=== PATIENT | female | born 1985 | race Caucasian/White ===

== ENCOUNTER 2018-11-18 05:34 | Day surgery (SDC) | payer MEDICAID ==
--- NOTE | 2018-11-12 12:48 | RADIOLOGY REPORT (SQ) ---
EXAM DESCRIPTION: CHEST PA/LATERAL COMPLETED DATE/TIME: 11/12/2018 12:39 pm REASON FOR STUDY: PRE-OP COMPARISON: None. EXAM PARAMETERS: NUMBER OF VIEWS: two views TECHNIQUE: Digital Frontal and Lateral radiographic views of the chest acquired. RADIATION DOSE: NA LIMITATIONS: none FINDINGS: LUNGS AND PLEURA: No opacities, masses or pneumothorax. No pleural effusion. MEDIASTINUM AND HILAR STRUCTURES: No masses or contour abnormalities. HEART AND VASCULAR STRUCTURES: Heart normal size. No evidence for failure. BONES: No acute findings. HARDWARE: None in the chest. OTHER: No other significant finding. IMPRESSION: NO SIGNIFICANT RADIOGRAPHIC FINDING IN THE CHEST. TECHNICAL DOCUMENTATION: JOB ID: [id number] [employer]- All Rights Reserved Reading location - IP/workstation name: [email or web address]
[2018-11-12 13:36] LABS: HEMATOCRIT 35.5 % (36.0-47.0); HEMOGLOBIN 11.9 g/dL (12.0-15.5); MEAN CORPUSCULAR HEMOGLOBIN 28.5 pg (27.0-33.4); MEAN CORPUSCULAR HGB CONC 33.6 g/dL (32.0-36.0); MEAN CORPUSCULAR VOLUME 85 fl (80-97); PLATELET COUNT 197 10^3/uL (150-450); RED BLOOD COUNT 4.19 10^6/uL (3.72-5.28); RED CELL DISTRIBUTION WIDTH 13.4 % (11.5-14.0); WHITE BLOOD COUNT 3.5 10^3/uL (4.0-10.5)
[2018-11-12 13:42] LABS: APPEARANCE,URINE SLIGHTLY-CLOUDY; BILIRUBIN,URINE NEGATIVE (NEGATIVE); COLOR,URINE YELLOW; GLUCOSE, URINE NEGATIVE (NEGATIVE); KETONES,URINE NEGATIVE (NEGATIVE); LEUKOCYTE ESTERASE,URINE NEGATIVE (NEGATIVE); NITRITE,URINE NEGATIVE (NEGATIVE); PROTEIN,URINE NEGATIVE (NEGATIVE); URINE SPECIFIC GRAVITY 1.021; UROBILINOGEN,URINE NEGATIVE mg/dL (<2.0)
[~2018-11-18 05:34] MED LIST: LACTATED RINGERS 1000 ML IV PRN; LIDOCAINE 0.5% INJ-PF (5 MG/ML) 50 ML SDV SUBCUT PRN
[2018-11-18] MEDS ORDERED: ALBUTEROL SULFATE 0.083% NEB 2.5 MG/3 ML AMPUL NEB ONE (06:08)
[2018-11-18] MEDS ORDERED: LIDOCAINE 2% INJ-PF (20 MG/ML) 10 ML AMPUL ONE (06:38)
[2018-11-18] MEDS ORDERED: FENTANYL CITRATE INJ/PF 100 MCG/2 ML AMPUL ONE (06:38)
[2018-11-18] MEDS ORDERED: EPHEDRINE SULFATE INJ 50 MG/1 ML AMPULE ONE (06:39)
[2018-11-18] MEDS ORDERED: PROMETHAZINE HCL INJ 25 MG/1 ML VIAL ONE (06:39)
[2018-11-18] MEDS ORDERED: PROPOFOL INJ 200 MG/20 ML VIAL IV ONE (06:39)
[2018-11-18] MEDS ORDERED: DEXAMETHASONE SOD PHOSPHATE INJ 4 MG/1 ML VIAL ONE (06:39)
[2018-11-18] MEDS ORDERED: ONDANSETRON HCL INJ/PF 4 MG/2 ML SDV ONE (06:39)
[2018-11-18] MEDS ORDERED: MIDAZOLAM 2 MG/2 ML INJ ONE (06:39)
[2018-11-18] MEDS ORDERED: ACETAMINOPHEN 1,000 MG/100 ML RTUPB IV ONE (06:39)
[2018-11-18] MEDS ORDERED: LIDOCAINE 1%/EPINEPHRINE INJ 20 ML VIAL ONE (06:45)
[2018-11-18] MEDS ORDERED: MORPHINE SULFATE 10 MG/ML INJ IV PRN (06:51)
[2018-11-18] MEDS ORDERED: DIPHENHYDRAMINE HCL 50 MG/ML VIAL IV PRN (06:51)
[2018-11-18] MEDS ORDERED: OXYCODONE-ACETAMINOPHEN 5-325 MG TABLET PO PRN ×4 (06:51→09:46)
[2018-11-18] MEDS ORDERED: FENTANYL CITRATE INJ/PF 100 MCG/2 ML AMPUL IV PRN ×3 (06:51)
[2018-11-18] MEDS ORDERED: PROMETHAZINE HCL INJ 25 MG/1 ML VIAL IV PRN ×2 (06:51)
[2018-11-18] MEDS ORDERED: MEPERIDINE HCL/PF INJ 25 MG/1 ML DISP.SYRIN IV PRN (06:51)
[2018-11-18] MEDS ORDERED: SCOPOLAMINE HYDROBROMIDE 1.5 MG PATCH.TD72 ONE (07:30)
[2018-11-18] MEDS ORDERED: HYDROMORPHONE HCL INJ/PF 2 MG/ML AMPULE ONE (07:58)
[2018-11-18] MEDS ORDERED: MEPERIDINE HCL/PF INJ 25 MG/1 ML DISP.SYRIN ONE (09:07)
[2018-11-18] MEDS ORDERED: MORPHINE SULFATE 10 MG/ML INJ IM PRN (09:44)
[2018-11-18] MEDS ORDERED: IBUPROFEN 800 MG TABLET PO PRN (09:45)
--- NOTE | 2018-11-18 10:07 | OPERATIVE REPORT E ---
Operative Report NAME: JON CRUZ : 1985 AGE: 33Y DATE OF SURGERY: 11/18/2018 ROOM: PREOPERATIVE DIAGNOSES: 1. Undesired fertility. 2. Cervical intraepithelial neoplasia grade 3. OPERATION: Laparoscopic tubal cauterization with cold knife cone biopsy and excision of inclusion cyst. SURGEON: MONISHA TITUS M.D. ESTIMATED BLOOD LOSS: 20 mL. FINDINGS: Normal uterus, tubes, and ovaries. Normal-appearing cervix with no visible lesions. COMPLICATIONS: None. SPECIMENS: Removed with the cold knife cone biopsy. PROCEDURE IN DETAIL: The patient was taken to the operating room, prepared and draped in a normal sterile fashion in the dorsal lithotomy position. Under sterile conditions an in-and-out catheter was performed of approximately 30 mL of clear urine. A sterile speculum was then placed in the vagina and the cervix was prepped with Betadine and grasped on the anterior lip with a single-tooth tenaculum. The cervix was then injected with approximately 10 mL of lidocaine 2% with epinephrine in a circumferential fashion. The 2 stay sutures of 0 Vicryl were placed at the 9 o'clock and 3 o'clock positions. The cold knife cone was then performed using an 11 blade and angling inwards towards the cervical canal. The cone was then amputated at the deepest aspect using Mayos. I did not get as much of the cervical canal as I would have liked so I did repeat another small part of excision using the 11 blade and removed this again with pickups and passed this off the field as well. The defect was then well cauterized with ball cautery using the Bovie. The defect was then packed with Surgifoam soaked in Monsel's and was tied in with the stay sutures. The stay sutures were then trimmed. Attention was then turned to the inclusion cyst that the patient asked for removal of. The inclusion cyst was on the left introitus and this was injected with another 3 mL of lidocaine with epinephrine and undermined. The inclusion cyst was then removed using an 11 blade scalpel and the skin was reapproximated using 3-0 Vicryl in a running fashion. This suture was then trimmed. The speculum was removed from the vagina and the sponge stick was placed into the vagina for uterine manipulation for her tubal. Gloves were changed and attention was turned to the upper portion of the case where an umbilical skin incision was made with a scalpel and Veress needle was introduced into the peritoneal cavity and placement was confirmed with free flow of sterile water. Through the Veress needle and an opening pressure of 4 mmHg, the abdomen was inflated with approximately 2 L of CO2 gas. The Veress needle was removed and the trocar was placed without difficulty. The patient was placed in a steep Trendelenburg and the camera was introduced into the abdomen with the above findings. Under direct visualization another 5 mm port was placed in the left lower quadrant. A Kleppinger was then introduced and both fallopian tubes were copiously coagulated approximately 3.5 cm on either side to provide permanent occlusion. The Kleppinger was removed and under direct visualization we removed the lower port and this was found to be hemostatic. The camera was removed and the abdomen was deflated through the umbilical port. The umbilical port was then removed and the skin was closed with 4-0 Vicryl. The patient tolerated the procedure well. Sponge, lap, and needle counts were correct x2. The patient was taken to recovery in stable condition. DICTATING PHYSICIAN: MONISHA TITUS M.D. [id number] PHY#: [id number] ID: [id number] JOB#: [id number] ACCT: [id number] cc:MONISHA TITUS M.D. >
[2018-11-18] MEDS ORDERED: OXYCODONE-ACETAMINOPHEN 5-325 MG TABLET ONE (10:09)
[2018-11-18 11:36] VITALS: BP 115/71
[2018-11-18] MEDS ORDERED: KETOROLAC TROMETHAMINE 60 MG/2 ML SDV ONE (11:46)
[2018-11-18] MEDS ORDERED: SUCCINYLCHOLINE CHLORIDE INJ 200 MG/10 ML VIAL ONE (11:46)
== END 2018-11-18 11:20 | disposition home or self-care (01) ==
LOC: OROUT 05:34
PROVIDERS: ATTEND Obstetrics & Gynecology
DX: D06.0 Carcinoma in situ of endocervix (principal); N88.8 Other specified noninflammatory disorders of cervix uteri; Z30.2 Encounter for sterilization; D64.9 Anemia, unspecified; J45.909 Unspecified asthma, uncomplicated; Z79.899 Other long term (current) drug therapy; Z79.51 Long term (current) use of inhaled steroids
CPT/HCPCS: 36415; 85027; 81005; 81025; 88307 ×2; 71046; 57520; 58670; J2250; J1100; J1885; J3010; J3490 ×3; J2175; J1170; J2550; J0330; J2405; J2704; J0131; 851

== ENCOUNTER → 2019-02-01 | Outpatient (CLI) | payer MEDICAID ==
[2019-02-01 15:08] LABS: BACTERIA (WET MOUNT) 3+ BACTERIA SEEN; EPITHELIALS (WET MOUNT) 3+ EPITHELIALS SEEN; T.VAGINALIS (WET MOUNT) NO TRICHOMONAS SEEN; WBCS (WET MOUNT) NO WBCS SEEN; YEAST (WET MOUNT) NO YEAST SEEN
[2019-02-01 16:40] LABS: GON PCR NOT DETECTED (NOT DETECT)
[2019-02-01 16:41] LABS: CHLAM PCR NOT DETECTED (NOT DETECT)
== END ==
LOC: LAB 14:56
PROVIDERS: ATTEND Nurse Practitioner Family
DX: N89.8 Other specified noninflammatory disorders of vagina (principal); R30.0 Dysuria
CPT/HCPCS: 87086; 87088; 87186; 87210; 87491; 87591

== ENCOUNTER → 2020-05-18 | Outpatient (CLI) | payer MEDICAID ==
--- NOTE | 2020-05-18 15:34 | RADIOLOGY REPORT (SQ) ---
EXAM DESCRIPTION: CT SINUSES FOR ENT IMAGES COMPLETED DATE/TIME: 05/18/2020 2:42 pm REASON FOR STUDY: J30.9 ALLERGIC RHINITIS, UNSPECIFIED J30.9 ALLERGIC RHINITIS, UNSPECIFIED COMPARISON: None. TECHNIQUE: Noncontrast scanning through the paranasal sinuses using bone algorithm. Reconstructed MPR images reviewed. All images stored on PACS. All CT scanners at this facility use dose modulation, iterative reconstruction, and/or weight based d osing when appropriate to reduce radiation dose to as low as reasonably achievable (ALARA). [facility]: Dose Right [facility]: CareDose [facility]: Dose Right [facility]: Teradose 4D [facility]: Vestiage RADIATION DOSE: 47 mGy LIMITATIONS: None. FINDINGS: Right sinuses and drainage pathways: Post-surgical changes: None. Frontal sinus: Normal. Frontoethmoidal Recess: Normal. Anterior Ethmoid Sinuses: Normal. Posterior Ethmoid Sinuses: Normal. Sphenoid Sinus: Normal. Sphenoethmoidal Recess: Normal. Maxillary Sinus: Normal. Ostiomeatal Complex: Patent on coronal image 80 Left Sinuses and Drainage Pathways: Post-Surgical Changes: None. Frontal Sinus: Normal. Frontoethmoidal Recess: Normal. Anterior Ethmoid Sinuses: Normal. Posterior Ethmoid Sinuses: Normal. Sphenoid Sinus: Normal. Sphenoethmoidal Recess: Normal. Maxillary Sinus: Normal. Ostiomeatal Complex: Patent on coronal image 80 Right Olfactory Fossa: No polyps. Left Olfactory Fossa: No polyps. Middle Turbinate Charisse Bullosa: On the right Paradoxical Middle Turbinate: No. Atelectatic Uncinated Process: No. Frontal Alex Cell Type I: No. Frontal Alex Cell Type II: Bilateral Interfrontal Sinus Septal Cell: None. Supra-Orbital Ethmoid: Bilateral Frontal Bullar Cell: None. Suprabullar Bullar Cell: None. Sphenoethmoidal (Onodi) Cell: None. Pneumatization of the Anterior Clinoid Processes: No Hypoplastic Maxillary Sinus: None. Osteoneogenesis: None. Bone Dehiscence:None. Nasal Cavity: Normal. Nasal Septum: Moderate size left nasal septal spur Anatomic Variants: Right Vidian Canal: Normal. Left Vidian Canal: Normal. IMPRESSION: NO EVIDENCE OF ACUTE OR CHRONIC SINUSITIS. TECHNICAL DOCUMENTATION: JOB ID: [id number] Quality ID # [id number]: Final reports with documentation of one or more dose reduction techniques (e.g., Au tomated exposure control, adjustment of the mA and/or kV according to patient size, use of iterative reconstruction technique) 2010 [email or web address]- All Rights Reserved Reading location - IP/workstation name: [email or web address]
== END ==
LOC: RAD 14:26
PROVIDERS: ATTEND Otolaryngology
DX: J30.9 Allergic rhinitis, unspecified (principal); M77.32 Calcaneal spur, left foot
CPT/HCPCS: 70486

== ENCOUNTER → 2020-05-30 | Outpatient (CLI) | payer MEDICAID | LOC: OD 15:11 | PROVIDERS: ATTEND Otolaryngology | DX: J30.9 Allergic rhinitis, unspecified (principal) | CPT/HCPCS: 36415; 82785; 86003 ==

== ENCOUNTER 2020-09-03 07:34 | Day surgery (SDC) | payer MEDICAID ==
[~2020-09-03 07:34] MED LIST changes: +DEXAMETHASONE SOD PHOS INJ 10 MG/1 ML VIAL ONE; +FAMOTIDINE INJ/PF 20 MG/2 ML SDV IV ONE; +FENTANYL CITRATE INJ/PF 100 MCG/2 ML AMPUL ONE; +GLYCOPYRROLATE INJ 0.4 MG/2 ML VIAL ONE; -LACTATED RINGERS 1000 ML IV PRN; -LIDOCAINE 0.5% INJ-PF (5 MG/ML) 50 ML SDV SUBCUT PRN; +LIDOCAINE 2% INJ-PF (100 MG/5 ML) SYRINGE ONE; +MIDAZOLAM 2 MG/2 ML INJ ONE; +MORPHINE SULFATE 10 MG/ML INJ ONE; +ONDANSETRON HCL INJ/PF 4 MG/2 ML SDV ONE; +PROPOFOL INJ 200 MG/20 ML VIAL IV ONE; +SUCCINYLCHOLINE CHLORIDE INJ 200 MG/10 ML VIAL ONE
[2020-09-03] MEDS ORDERED: LEVALBUTEROL HCL NEB 0.63 MG/3 ML AMPUL NEB ONE (08:43)
[2020-09-03] MEDS ORDERED: BUPIVACAINE HCL 0.5%/EPI 1:200000 INJ 1.8 ML CARTRIDGE ONE (08:48)
[2020-09-03] MEDS ORDERED: FENTANYL CITRATE INJ/PF 100 MCG/2 ML AMPUL ONE (10:19)
--- NOTE | 2020-09-03 11:33 | Operative Report ---
Operative Report-[facility] Operative Report: DATE OF OPERATION: September 03, 2020 PREOPERATIVE DIAGNOSIS: 1. Acute recurrent tonsillitis 2. Chronic tonsillitis POSTOPERATIVE DIAGNOSIS: 1. Acute recurrent tonsillitis 2. Chronic Tonsillitis PROCEDURE: 1. Bilateral tonsillectomy patient age greater than 12 years of age Primary Surgeon of Record: Dr. Farrukh Correa WELFARE SUPERVISOR: None Anesthesia Staff: TAMMIE Dey ANESTHESIA: General Endotracheal Tube Anesthesia DRAINS: None SPONGE COUNT: Verified Needle Count: N/A SPECIMEN/MATERIALS FORWARD TO THE LAB: 1. Left and Right Tonsillar Tissue ESTIMATED BLOOD LOSS: 5 mL IV FLUIDS: 750 mL COMPLICATIONS: None Findings: 1. The tonsils were greater than 2+ in size, were cryptic in nature, were very endophytic in nature, and were with scattered tonsillar debris bilateral. 2. The soft palatal tissues were redundant in nature and the uvula was unremarkable in appearance. INDICATIONS: This is a 35-year-old white female patient who was seen and evaluated in the [place] otolaryngology office. The patient had been referred for and the patient is with history of acute recurrent tonsillitis episodes occurring each year requiring antibiotics over the years. The patient is also with history of chronic tonsillitis symptoms with recurrent tonsil stones and condition consistent with keratosis pharyngeus over the years. After extensive discussion with the patient with the recommendation and plan was to proceed with a bilateral tonsillectomy. The procedures and all of the risks and complications were all discussed in detail with the patient. She voiced an understanding of the described surgical plan, were in agreement, and consent was obtained. DESCRIPTION OF OPERATIVE PROCEDURE: The patient was taken to the main operating room and was placed on the operating room table in the supine position. Appropriate monitors were placed. Using mask and IV access general anesthesia was induced. The patient was next transorally intubated without difficulty. The table was then rotated 90 and the patient was positioned and prepped for tonsil surgery. The lips, teeth, tongue, and gums were inspected and noted to be without defect. The patient had a mouth gag inserted. It was opened and the patient was placed into suspension. There was a soft catheter passed through the nose that was used to suspend the soft palate. Findings are as noted above. At this point Marcaine with epinephrine was administered into the peritonsillar tissues and soft palate region. The plasma J-hook device was used to dissect and remove the tonsils from the tonsillar fossae without difficulty. This was also used to provide adequate hemostasis. Normal saline irrigation was performed and was suctioned. Adequate hemostasis was noted. The soft catheter was released and removed from the patients nose. The patient was next released from suspension and the mouth gag was closed. It was opened again and there was again no bleeding noted. It was then removed from the patient's mouth without difficulty. There was no damage to the lips, teeth, tongue, or gums noted. The patient was then returned to the anesthesia staff and was allowed to emerge from general anesthesia. The patient was extubated in the operating room and was transported to the post anesthesia recovery unit in stable condition. There were no complications.
== END 2020-09-03 11:10 | disposition home or self-care (01) ==
LOC: SC 07:34
PROVIDERS: ATTEND Otolaryngology
DX: J03.91 Acute recurrent tonsillitis, unspecified (principal); J35.01 Chronic tonsillitis; J32.9 Chronic sinusitis, unspecified; J34.2 Deviated nasal septum; Z03.818 Encounter for observation for suspected exposure to other biological agents ruled out
CPT/HCPCS: 87635; 88304 ×2; 42826; J2250; J3490 ×2; J3010; J2001; J0330; J2405; J2704; S0028; J1100; C9803; J2270